=== PATIENT | female | born 1995 | race Caucasian/White ===

== ENCOUNTER 2018-05-11 22:30 | Emergency (ER) | payer OTHER ==
[~2018-05-11] VITALS: Ht 157.5 cm; Wt 53.1 kg
[~2018-05-11 22:30] MED LIST: KETO10TA2 PO
[2018-05-12] MEDS ORDERED: FLAGYL500MG PO (07:25)
[2018-05-12] MEDS ORDERED: ULTRAM50 MG PO (07:25)
[2018-05-12] MEDS ORDERED: CIPRO500 MG PO (07:25)
== END 2018-05-12 08:27 | disposition home or self-care (01) ==
LOC: ER 22:30
DX: K62.5 Hemorrhage of anus and rectum (principal)

== ENCOUNTER → 2018-05-14 | Emergency (ER) | payer OTHER ==
[~2018-05-14] VITALS: Ht 157.5 cm; Wt 53.1 kg
[~2018-05-14] MED LIST changes: +CIPRO500 MG PO; +FLAGYL500MG PO; +ULTRAM50 MG PO
== END | disposition home or self-care (01) ==
LOC: ER 21:08
DX: R25.2 Cramp and spasm (principal); A04.9 Bacterial intestinal infection, unspecified

== ENCOUNTER 2019-12-10 13:20 | Emergency (ER) | payer OTHER ==
[~2019-12-10] VITALS: Ht 160 cm; Wt 56.7 kg
[2019-12-10] MEDS ORDERED: ZITHROMAX500 MG PO (16:28)
[2019-12-10] MEDS ORDERED: DOLOGEN CAPLET1 EACH PO (16:28)
[2019-12-10] MEDS ORDERED: TUSNEL LIQUID178 ML PO (16:28)
== END 2019-12-10 16:57 | disposition home or self-care (01) ==
LOC: ER 13:20 → EDBD 13:38 → ER 16:57
DX: B34.9 Viral infection, unspecified (principal)

== ENCOUNTER 2019-12-13 22:22 | Emergency (ER) | payer OTHER ==
[~2019-12-13] VITALS: Ht 160 cm; Wt 57.6 kg
[~2019-12-13 22:22] MED LIST changes: +DOLOGEN CAPLET1 EACH PO; +TUSNEL LIQUID178 ML PO; +ZITHROMAX500 MG PO
== END 2019-12-14 04:08 ==
LOC: ER 22:22 → EDBD 22:22 → ER 22:46
DX: R00.2 Palpitations (principal)